=== PATIENT | female | born 1975 | race Hispanic/Latino ===

== ENCOUNTER 2018-03-27 13:22 | Outpatient (CLI) | payer BC ==
--- NOTE | 2018-03-27 15:42 | Mammography Report ---
BILATERAL DIGITAL SCREENING MAMMOGRAM with CAD: 03/27/18 13:22:00 CLINICAL: Baseline screening. FINDINGS: The breasts are heterogeneously dense, which may obscure small masses. No mass, architectural distortion or suspicious calcifications. IMPRESSION: No mammographic evidence of malignancy. BI-RADS CATEGORY: 1 - - Negative RECOMMENDATION: Routine mammographic screening in one year. COMMENT: Patient follow-up letters are generated by our [employer] application.
== END 2018-03-27 13:23 | disposition home or self-care (01) ==
LOC: MAMMO 13:22
PROVIDERS: ATTEND Obstetrics & Gynecology
DX: Z12.31 Encounter for screening mammogram for malignant neoplasm of breast (principal)
CPT/HCPCS: 77067

== ENCOUNTER 2018-11-04 07:08 | Outpatient (CLI) | payer BC ==
--- NOTE | 2018-11-04 10:18 | Fluoroscopy Report ---
UPPER GI SERIES WITH AIR-CONTRAST History: Hiatal hernia, dysphagia. Comparison: No relevant comparison at this facility. Findings: 57 fluoroscopic images were saved during this exam. Deglutition appeared normal. No evidence for aspiration. Multiple fluoroscopic images demonstrated a focal area of high-grade narrowing in the distal esophagus just before the GE junction. Stenosis in this area is estimated at 80% or greater. The area of narrowing measures approximately 2-3 cm in length. This has the appearance of a benign stricture. No evidence for esophageal mass or hiatal hernia. There was significant delay in passage of the oral contrast into the stomach. Occasional esophageal spasms were also witnessed throughout this exam suggesting mild esophagitis. No gastroesophageal reflux was witnessed. The patient was administered a barium tablet which did not transverse the area of esophageal narrowing. The gastric cavity, duodenal bulb and duodenal sweep are unremarkable. No evidence for ulceration or mucosal defect. IMPRESSION: A focal smooth high grade stricture is suspected in the distal esophagus as outlined above.
== END 2018-11-04 07:09 | disposition home or self-care (01) ==
LOC: FLUORO 07:08
PROVIDERS: ATTEND Internal Medicine
DX: K44.9 Diaphragmatic hernia without obstruction or gangrene (principal)
CPT/HCPCS: 74247

== ENCOUNTER 2019-02-27 16:17 | Inpatient (IN) | payer BC ==
[2019-02-27] MEDS ORDERED: PEPCID IV ONE ×2 (16:21→16:23)
[2019-02-27] MEDS ORDERED: SOLU-Medrol IV ONE (16:21)
[2019-02-27] MEDS ORDERED: BENADRYL IV ONE (16:21)
[2019-02-27] MEDS ORDERED: NACL 0.9% 1000 ML 1,000 ML IV ONE ×2 (16:22→18:52)
[2019-02-27] MEDS ORDERED: SOLU-Medrol ONE (16:23)
[2019-02-27] MEDS ORDERED: BENADRYL ONE (16:24)
[2019-02-27] MEDS ORDERED: NACL 0.9% 1000 ML 1,000 ML ONE (16:24)
--- NOTE | 2019-02-27 16:26 | Emergency Department Report ---
HPI - General Time Seen by Provider: 02/27/19 16:21 - HPI HPI: Room 25 The patient is a 43-year-old female presenting with chief complaint of allergic reaction. The patient states she had taken a Bactrim approximately one hour ago. Patient complains of feeling itchy all over with a new rash. Patient also states her teeth "feel funny." Patient states she has taken Bactrim in the past. Patient is currently being treated for UTI. Patient states she's been congested recently Location: [See above] Duration: [See above] Quality: [See above] Severity: [See above] Modifying factors: [see above] Context: [see above] Mode of transportation: [not driving] ED Past Medical Hx - Surgical History Past Surgical History?: No - Family History Family history: no significant - Social History Smoking Status: Current Every Day Smoker (1 pack per day) - Medications Home Medications: Home Medications Medication Instructions Recorded Confirmed Last Taken Type EPINEPHrine [Epipen 2-Handy] 0.3 mg IM ONCE PRN #0.6 ml 02/27/19 Unknown Rx Famotidine [Pepcid] 20 mg PO BID #6 tablet 02/27/19 Unknown Rx Prednisone [predniSONE 10 mg 10 mg PO .TAPER #1 tab.ds.pk 02/27/19 Unknown Rx (6-Day Pack, 21 Tabs)] diphenhydrAMINE [Benadryl CAP] 50 mg PO Q6HR #24 capsule 02/27/19 Unknown Rx levoFLOXacin [Levaquin TAB] 500 mg PO QDAY #7 tablet 02/27/19 Unknown Rx ED Review of Systems ROS: Stated complaint: ALLERGIC REACTION Other details as noted in HPI ENT: other (teeth "feel funny") Skin: rash, pruritus Physical Exam - Physical Exam Physical Exam: GENERAL: The patient is well-developed well-nourished female lying on stretcher not appearing to be in acute distress. [] HEENT: Normocephalic. Atraumatic. NECK: Supple. No stridor CHEST/LUNGS: Faint occasional expiratory wheezing left upper and left lower lobe. There is no respiratory distress noted. HEART/CARDIOVASCULAR: Regular. There is tachycardia. There is no gallop rub or murmur. SKIN: Urticaria present diffusely. There is no diaphoresis. NEURO: The patient is awake, alert, and oriented. The patient is cooperative. The patient has no focal neurologic deficits. The patient has normal speech and gait. MUSCULOSKELETAL: There is no evidence of acute injury. ED Course - Reevaluation(s) Reevaluation #1: 02/27/19 17:08 Patient states she feels improved. SPO2 98% on room air. No respiratory distress. Reevaluation #2: 02/27/19 18:32 Patient states she feels though her symptoms are returning and becoming short of breath. Will repeat racemic epi neb Informed by nurse and the patient's blood pressure decreased to the 80s systolic. Improved with IV fluids. We'll admit the patient to the hospital for further observation ED Medical Decision Making - Lab Data Result diagrams: 02/27/19 19:01 02/27/19 19:01 Laboratory Tests 02/27/19 02/27/19 19:01 19:01 WBC 15.5 H RBC 4.90 Hgb 15.5 H Hct 45.6 H MCV 93 MCH 32 MCHC 34 RDW 13.5 Plt Count 289 Lymph % (Auto) Not Reportable [place] % (Auto) 2.1 Eos % (Auto) 0.1 Baso % (Auto) Not Reportable Lymph # Not Reportable [place] # 0.3 Eos # 0.0 Baso # 0.1 Seg Neutrophils % 85.5 H Seg Neutrophils # 13.6 H Sodium 138 Potassium 3.2 L Chloride 102.8 Carbon Dioxide 21 L Anion Gap 17 BUN 11 Creatinine 0.8 Estimated GFR > 60 BUN/Creatinine Ratio 14 Glucose 170 H Calcium 7.9 L - Radiology Data Radiology results: report reviewed (chest x-ray), image reviewed (chest x-ray) interpreted by me: Chest x-ray-no focal infiltrates no pneumothorax [facility] [address] [place] [address] XRay Report Signed Patient: SINGH HUTCHINSON MR#: [id number] : 1975 Acct:[id number] Age/Sex: 43 / F ADM Date: 02/27/19 Loc: ED Attending Dr: Ordering Physician: CINTHIA WU MD Date of Service: 02/27/19 Procedure(s): XR chest 1V ap Accession Number(s): [id number] cc: CINTHIA WU MD Fluoro Time In Minutes: CHEST 1 VIEW INDICATION: allergic reaction, wheezing today. COMPARISON: None FINDINGS: Support devices: None. Heart: Within normal limits. Lungs/Pleura: No acute air space or interstitial disease. Additional findings: None. IMPRESSION: 1. No acute findings. Signer Name: Raman Cooper MD Signed: 02/27/2019 5:03 PM Workstation Name: [id number] Transcribed By: ASHER Dictated By: Raman Cooper MD Electronically Authenticated By: Raman Cooper MD Signed Date/Time: 02/27/191702 DD/ 02 TD/TT: - Differential Diagnosis allergic reaction Critical care attestation.: If time is entered above; I have spent that time in minutes in the direct care of this critically ill patient, excluding procedure time. ED Disposition Clinical Impression: Acute allergic reaction Disposition: -01 TO HOME OR SELFCARE Is pt being admited?: No Does the pt Need Aspirin: No Condition: Stable Instructions: Antibiotic Medication Allergy (ED) Additional Instructions: Return to the emergency department immediately should you develop worsening symptoms, fever, inability to tolerate food or liquid or any other concerns. Prescriptions: diphenhydrAMINE [Benadryl CAP] 50 mg PO Q6HR #24 capsule EPINEPHrine [Epipen 2-Handy] 0.3 mg IM ONCE PRN #0.6 ml PRN Reason: Shortness Of Breath levoFLOXacin [Levaquin TAB] 500 mg PO QDAY #7 tablet Famotidine [Pepcid] 20 mg PO BID #6 tablet Prednisone [predniSONE 10 mg (6-Day Pack, 21 Tabs)] 10 mg PO .TAPER #1 tab.ds.pk Referrals: PRIMARY CARE, [Referring] - 3-5 Days Time of Disposition: 20:07
--- NOTE | 2019-02-27 17:07 | XRay Report ---
CHEST 1 VIEW INDICATION: allergic reaction, wheezing today. COMPARISON: None FINDINGS: Support devices: None. Heart: Within normal limits. Lungs/Pleura: No acute air space or interstitial disease. Additional findings: None. IMPRESSION: 1. No acute findings. Signer Name: Raman Cooper MD Signed: 02/27/2019 5:03 PM Workstation Name: [id number]
[2019-02-27] MEDS ORDERED: ATARAX PO ONE (18:00)
[2019-02-27] MEDS ORDERED: DECADRON IV ONE (18:24)
[2019-02-27] MEDS ORDERED: DECADRON ONE (18:28)
[2019-02-27 19:30] LABS: Basophils # (Auto) 0.1 K/mm3 (0.0-0.1); Eosinophils % (Auto) 0.1 % (0.0-4.3); Monocytes # (Auto) 0.3 K/mm3 (0.0-0.8); Monocytes % (Auto) 2.1 % (0.0-7.3)
[2019-02-27 19:55] LABS: BUN/Creatinine Ratio 14; Blood Urea Nitrogen 11 mg/dL (7-17); Calcium 7.9 mg/dL (8.4-10.2); Hemolysis Index 7
[2019-02-27] MEDS ORDERED: K-DUR PO ONE ×2 (19:58→22:13)
[2019-02-27 20:00] LABS: Hematocrit 45.6 % (30.3-42.9); Hemoglobin 15.5 gm/dl (10.1-14.3); Mean Corpuscular HGB Conc 34 % (30-34); Mean Corpuscular Volume 93 fl (79-97); Platelet Count 289 K/mm3 (140-440); Red Cell Distribution Width 13.5 % (13.2-15.2)
[2019-02-27 20:55] LABS: Basophils % (Manual) 0 % (0.0-1.8); Eosinophils % (Manual) 0 % (0.0-4.3); Total Cells Counted 100
[2019-02-27 20:56] LABS: Platelet Estimate Consistent w Auto; RBC Morphology Normal
[2019-02-27] MEDS ORDERED: TYLENOL PO PRN (21:41)
[2019-02-27] MEDS ORDERED: ZOFRAN IV PRN (21:41)
[2019-02-27] MEDS ORDERED: SODIUM CHLORIDE FLUSH SYRINGE 10 ML IV PRN (21:41)
[2019-02-27] MEDS ORDERED: BENADRYL IV PRN (21:43)
--- NOTE | 2019-02-27 21:45 | History and Physical Report ---
History of Present Illness Date of examination: 02/27/19 Date of admission: 02/27/19 20:02 History of present illness: 43-year-old with no medical problems was seen in the emergency room for kaila luation of rash. She took Bactrim for urinary tract infection, shortly after she developed a rash on her chest, legs, face. Also complain of itching on her face, going down to her legs and didn't fall her teeth gums and inside the ears. She was given steroids, epinephrine, Benadryl and Pepcid in the emergency room. Her symptoms improve but then she developed shortness of breath, hyotension whi ch she responded to IV fluids Review of systems Constitutional: no weight loss, chills, fever Ears, eyes, nose, mouth and throat: no nasal congestion, no nasal discharge, no sinus pressure, no vision change, no red eye. Neck: No neck pain or rigidity. Cardiovascular: no palpitations, chest pain Respiratory: no cough Gastrointestinal: no hematochezia, abdominal pain Genitourinary : no frequency , no hematuria Musculoskeletal: no joint swelling or muscle ache Integumentary: no rash, no pruritis Neurological: no parathesias, no focal weakness Endocrine: no cold or heat intolerance, no polyuria or polydipsia Hematologic/Lymphatic: no easy bruising, no easy bleeding, no gland swelling Allergic/Immunologic: no urticaria, no angioedema. PAST MEDICAL HISTORY: None PAST SURGICAL HISTORY: SOCIAL HISTORY: Social alcohol, no drugs, +tobacco FAMILY HISTORY: Hypertension Medications and Allergies Allergies Allergy/AdvReac Type Severity Reaction Status Date / Time No Known Allergies Allergy Verified 01/05/19 11:15 Home Medications Medication Instructions Recorded Confirmed Last Taken Type EPINEPHrine [Epipen 2-Handy] 0.3 mg IM ONCE PRN #0.6 ml 02/27/19 Unknown Rx Famotidine [Pepcid] 20 mg PO BID #6 tablet 02/27/19 Unknown Rx Prednisone [predniSONE 10 mg 10 mg PO .TAPER #1 tab.ds.pk 02/27/19 Unknown Rx (6-Day Pack, 21 Tabs)] diphenhydrAMINE [Benadryl CAP] 50 mg PO Q6HR #24 capsule 02/27/19 Unknown Rx levoFLOXacin [Levaquin TAB] 500 mg PO QDAY #7 tablet 02/27/19 Unknown Rx Active Meds: Active Medications Acetaminophen (Tylenol) 650 mg PO Q4H PRN PRN Reason: Pain MILD(1-3)/Fever >100.5/DAVILA Diphenhydramine HCl (Benadryl) 25 mg IV Q6H PRN PRN Reason: Itching Famotidine (Pepcid) 10 mg IV BID CALLY Sodium Chloride (Nacl 0.9% 1000 Ml) 1,000 mls @ 125 mls/hr IV DIRECT CALLY Methylprednisolone Sodium Succinate (Solu-Medrol) 125 mg IV Q6HR CALLY Ondansetron HCl (Zofran) 4 mg IV Q4H PRN PRN Reason: Nausea And Vomiting Sodium Chloride (Sodium Chloride Flush Syringe 10 Ml) 10 ml IV BID CALLY Sodium Chloride (Sodium Chloride Flush Syringe 10 Ml) 10 ml IV PRN PRN PRN Reason: LINE FLUSH Exam - Physical Exam Narrative exam: General Apperance: The patient lying in bed, breathing comfortable HEENT: Normocephalic, atraumatic. Pupils equally round and reactive to light, EOMI, no sclericterus or JVD or thyromegaly or nodule. , no carotid bruit, mucous membranes moist, no exudate or erythema Heart: S1-S2, regular is rhythm Lungs: Clear to auscultation bilaterally, breathing comfortable Abdomen: Positive bowel sounds, soft, nontender, nondistended, no organomegaly Extremities: No edema cyanosis clubbing Skin: no rash, nodule, warm and dry Neuro: cranial nerves 2-12 intact, speech is fluent, motor/sensory intact - Constitutional Vitals: Temp Pulse Resp BP Pulse Ox 98.5 F 91 H 13 124/61 98 02/27/19 20:16 02/27/19 20:16 02/27/19 20:16 02/27/19 20:16 02/27/19 20:16 Results - Labs CBC & Chem 7: 02/27/19 19:01 02/27/19 19:01 Labs: Abnormal lab results 02/27/19 02/27/19 Range/Units 19:01 19:01 WBC 15.5 H (4.5-11.0) K/mm3 Hgb 15.5 H (10.1-14.3) gm/dl Hct 45.6 H (30.3-42.9) % Seg Neutrophils % 85.5 H (40.0-70.0) % Seg Neuts % (Manual) 93.0 H (40.0-70.0) % Lymphocytes % (Manual) 5.0 L (13.4-35.0) % Seg Neutrophils # 13.6 H (1.8-7.7) K/mm3 Seg Neutrophils # Man 14.4 H (1.8-7.7) K/mm3 Lymphocytes # (Manual) 0.8 L (1.2-5.4) K/mm3 Potassium 3.2 L (3.6-5.0) mmol/L Carbon Dioxide 21 L (22-30) mmol/L Glucose 170 H (65-100) mg/dL Calcium 7.9 L (8.4-10.2) mg/dL - Imaging and Cardiology Chest x-ray: report reviewed Assessment and Plan Assessment Allergic reaction to Bactrim Urinary tract infection Plan Admit to medicine Start steroids, Pepcid, Benadryl IV Rocephin, DVT prophylaxis
[2019-02-27] MEDS: SODIUM CHLORIDE FLUSH SYRINGE 10 ML IV SCH (22:14)
[2019-02-27] MEDS: PEPCID IV SCH (22:55)
[2019-02-27] MEDS: NACL 0.9% 1000 ML 1,000 ML IV SCH (22:55)
[2019-02-28] MEDS: SOLU-Medrol IV SCH ×3 (00:07→12:23)
[2019-02-28 05:16] LABS: Hematocrit 44.1 % (30.3-42.9); Hemoglobin 15.2 gm/dl (10.1-14.3); Mean Corpuscular HGB Conc 34 % (30-34); Mean Corpuscular Volume 92 fl (79-97); Platelet Count 266 K/mm3 (140-440); Red Blood Count 4.79 M/mm3 (3.65-5.03); Red Cell Distribution Width 13.2 % (13.2-15.2)
[2019-02-28] MEDS: NACL 0.9% 1000 ML 1,000 ML IV SCH (05:18)
[2019-02-28 05:31] LABS: BUN/Creatinine Ratio 10; Blood Urea Nitrogen 7 mg/dL (7-17); Calcium 8.3 mg/dL (8.4-10.2); Hemolysis Index 3
[2019-02-28 08:25] VITALS: BP 115/50
[2019-02-28 08:41] LABS: Basophils % (Manual) 0 % (0.0-1.8); Eosinophils % (Manual) 0 % (0.0-4.3); Platelet Estimate Consistent w Auto; RBC Morphology Normal; Total Cells Counted 100
[2019-02-28] MEDS: PEPCID IV SCH (09:51)
[2019-02-28] MEDS: SODIUM CHLORIDE FLUSH SYRINGE 10 ML IV SCH (09:59)
[2019-02-28] MEDS ORDERED: ROCEPHIN/NS 1 GM/50 ML 1 GM/50 ML BAG IV SCH (10:00)
--- NOTE | 2019-02-28 11:29 | Discharge Summary ---
Providers - Providers Date of Admission: 02/27/19 20:02 Date of discharge: 02/28/19 Attending physician: JEN ROBB [facility] Reason for admission: allergic reaction to Bactrim Condition: Stable Pertinent studies: chest x-ray; no acute abnormality noted Hospital course: 43-year-old with no medical problems was seen in the emergency room for evaluation of rash. She took Bactrim for urinary tract infection, shortly after she developed a rash on her chest, legs, face. Also complain of itching on her face, going down to her legs and didn't fall her teeth gums and inside the ears. She was given steroids, epinephrine, Benadryl and Pepcid in the emergency room. Her symptoms improve but then she developed shortness of breath, hyotension which she responded to IV fluids. Patient was admitted to the hospital managed with high-dose IV steroids and antihistamines and Pepcid Bactrim was discontinued, patient was given Levaquin for her urinary tract infection as well as EpiPen to use as needed Patient's symptoms significantly improved, today she is comfortable in no new complaints neurologicalno shortness of breath or stridor Vital signs stable, physical examination at discharge is unremarkable Bactrim allergy was documented and strictly told the patient to avoid Bactrim caused related medications as she is allergic and has life-threatening Allergic reaction, patient verbalized understanding Patient is stable at discharge Discharge diagnosis; --Allergic reaction to Bactrim; Received IV steroids and IV antihistamine Pepcid, Bactrim discontinued Symptoms significantly improved --Urinary tract infection; advised Levaquin Levaquin follow-up primary care physician --Obesity BMI 38.9; advised her to touch when medically stable, --Ongoing tobacco use; smoking cessation counseling, advised nicotine patch as needed Patient is hemodynamically and clinically stable at discharge Disposition: DC-01 TO HOME OR SELFCARE Time spent for discharge: 31 min Core Measure Documentation - Palliative Care Palliative Care/ Comfort Measures: Not Applicable - Core Measures Any of the following diagnoses?: none Exam - Constitutional Vitals: Temp Pulse Resp BP Pulse Ox 98.7 F 73 18 115/50 93 02/28/19 08:05 02/28/19 04:11 02/28/19 08:05 02/28/19 08:05 02/28/19 04:11 General appearance: Present: no acute distress, well-nourished, cachectic - EENT Eyes: Present: PERRL, EOM intact - Neck Neck: Present: supple, normal ROM - Respiratory Respiratory effort: normal Respiratory: bilateral: diminished, negative: rales, rhonchi, wheezing - Cardiovascular Rhythm: regular Heart Sounds: Present: S1 & S2 - Extremities Extremities: no ischemia, No edema - Abdominal General gastrointestinal: Present: soft, non-tender, non-distended, normal bowel sounds - Integumentary Integumentary: Present: clear, warm - Musculoskeletal Musculoskeletal: strength equal bilaterally - Psychiatric Psychiatric: appropriate mood/affect, cooperative - Neurologic Neurologic: CNII-XII intact, moves all extremities Plan Activity: no restrictions Diet: regular Additional Instructions: You are Allergic to Bactrim, do not take Bactrim or sulfa group of medications. Advised one day rest on 03/01/2019 Follow up with: PRIMARY CARE, [Referring] - 3-5 Days Forms: Work/School Release Form Prescriptions: diphenhydrAMINE [Benadryl CAP] 50 mg PO Q6HR #24 capsule EPINEPHrine [Epipen 2-Handy] 0.3 mg IM ONCE PRN #0.6 ml PRN Reason: Shortness Of Breath levoFLOXacin [Levaquin TAB] 500 mg PO QDAY #7 tablet Famotidine [Pepcid] 20 mg PO BID #6 tablet Prednisone [predniSONE 10 mg (6-Day Pack, 21 Tabs)] 10 mg PO .TAPER #1 tab.ds.pk
== END 2019-02-28 13:36 | disposition home or self-care (01) | DRG 607 ==
LOC: ED 16:17 → EEVIPCON 20:02 → 4A 20:02
PROVIDERS: ADMIT Internal Medicine; ATTEND Internal Medicine
DX: L29.9 Pruritus, unspecified (principal); N39.0 Urinary tract infection, site not specified; F17.200 Nicotine dependence, unspecified, uncomplicated; T36.8X5A Adverse effect of other systemic antibiotics, initial encounter; Z82.49 Family history of ischemic heart disease and other diseases of the circulatory system; Y92.098 Other place in other non-institutional residence as the place of occurrence of the external cause
CPT/HCPCS: 36415; 71045; 80048; 85007; 85025; 94640; 96361; 96365; 96375; 99406; G0378; J0696; J1100; J1200; J2930; J7030

== ENCOUNTER 2019-07-15 12:35 | Outpatient (CLI) | payer BC ==
--- NOTE | 2019-07-15 15:22 | Mammography Report ---
DIGITAL SCREENING MAMMOGRAM WITH CAD, 07/15/2019 INDICATION: Routine screening mammography. TECHNIQUE: Digital bilateral 2D mammography was obtained in the craniocaudal and mediolateral obliq ue projections. COMPARISON: 03/27/2018. FINDINGS: Breast Density: There are scattered areas of fibroglandular density. There is no evidence of dominant mass, suspicious calcifications or architectural distortion in eithe r breast. CAD was utilized. IMPRESSION: No evidence of malignancy. Recommend screening mammogram in 1 year. BI-RADS Category 1: Negative. No mammographic evidence of malignancy. Recommend routine screening m ammography in one year. A "normal" or negative report should not discourage follow up or biopsy of a clinically significant f inding. A written summary of these findings will be mailed to the patient. The patient will be entered into a mammography reporting system which will generate a reminder letter for the patient's next appointmen t at the appropriate interval. The [employer] recommends yearly mammograms starting at age 40 and continuing as l nguyen as a woman is in good health. Breast MRI is recommended for women with an approximate 20-25% or greater lifetime risk of breast cancer, including women with a strong family history of breast or ova amy cancer or who have been treated for Hodgkin's disease. Signer Name: Vijay Yang MD Signed: 07/15/2019 3:18 PM Workstation Name: [id number]
== END 2019-07-15 12:36 | disposition home or self-care (01) ==
LOC: MAMMO 12:35
PROVIDERS: ATTEND Obstetrics & Gynecology
DX: Z12.31 Encounter for screening mammogram for malignant neoplasm of breast (principal)
CPT/HCPCS: 77067

== ENCOUNTER 2019-07-27 11:29 | Outpatient (CLI) | payer BC ==
[2019-07-27 11:48] LABS: Basophils % (Auto) 0.6 % (0.0-1.8); Eosinophils # (Auto) 0.1 K/mm3 (0.0-0.4); Eosinophils % (Auto) 1.1 % (0.0-4.3); Hematocrit 43.8 % (30.3-42.9); Hemoglobin 14.9 gm/dl (10.1-14.3); Lymphocytes # (Auto) 3.1 K/mm3 (1.2-5.4); Lymphocytes % (Auto) 41.8 % (13.4-35.0); Mean Corpuscular HGB Conc 34 % (30-34); Mean Corpuscular Volume 92 fl (79-97); Monocytes # (Auto) 0.4 K/mm3 (0.0-0.8); Monocytes % (Auto) 5.9 % (0.0-7.3); Platelet Count 265 K/mm3 (140-440); Red Blood Count 4.76 M/mm3 (3.65-5.03); Red Cell Distribution Width 13.1 % (13.2-15.2)
[2019-07-27 12:24] LABS: Alanine Aminotransferase 11 units/L (7-56); BUN/Creatinine Ratio 16; Blood Urea Nitrogen 13 mg/dL (7-17); Calcium 9.1 mg/dL (8.4-10.2); Hemolysis Index 3
== END 2019-07-27 11:30 | disposition home or self-care (01) ==
LOC: LAB 11:29
PROVIDERS: ATTEND Emergency Medicine
DX: I95.9 Hypotension, unspecified (principal)
CPT/HCPCS: 36415; 80053; 83735; 84703; 85025; 85379

== ENCOUNTER 2020-06-29 10:42 | Outpatient (CLI) | payer BC ==
[2020-06-29 11:36] LABS: Basophils % (Auto) 0.5 % (0.0-1.8); Eosinophils # (Auto) 0.1 K/mm3 (0.0-0.4); Hematocrit 43.3 % (30.3-42.9); Lymphocytes # (Auto) 1.9 K/mm3 (1.2-5.4); Lymphocytes % (Auto) 26.6 % (13.4-35.0); Mean Corpuscular HGB Conc 35 % (30-34); Mean Corpuscular Volume 91 fl (79-97); Monocytes # (Auto) 0.5 K/mm3 (0.0-0.8); Monocytes % (Auto) 7.4 % (0.0-7.3); Platelet Count 256 K/mm3 (140-440); Red Blood Count 4.73 M/mm3 (3.65-5.03); Red Cell Distribution Width 13.6 % (13.2-15.2)
[2020-06-29 11:42] LABS: Alanine Aminotransferase 11 units/L (7-56); BUN/Creatinine Ratio 20; Blood Urea Nitrogen 16 mg/dL (7-17); Chol/HDL Ratio 2.85 %; HDL Cholesterol 54 mg/dL (40-59); Hemolysis Index 3; LDL Cholesterol,Direct 100 mg/dL (50-130)
== END 2020-06-29 10:43 | disposition home or self-care (01) ==
LOC: LAB 10:42
PROVIDERS: ATTEND Internal Medicine
DX: Z00.00 Encounter for general adult medical examination without abnormal findings (principal)
CPT/HCPCS: 36415; 80053; 80061; 84443; 85025

== ENCOUNTER 2020-07-27 11:01 | Outpatient (CLI) | payer BC ==
--- NOTE | 2020-07-27 14:51 | Mammography Report ---
DIGITAL SCREENING MAMMOGRAM WITH CAD, 07/27/2020 CLINICAL INFORMATION / INDICATION: Routine screening mammography. TECHNIQUE: Digital bilateral 2D mammography was obtained in the craniocaudal and mediolateral obliqu e projections. This examination was interpreted with the benefit of Computer-Aided Detection analysis . COMPARISON: 07/15/2019 FINDINGS: Breast Density: There are scattered areas of fibroglandular density. No dominant mass, suspicious calcifications, or architectural distortion in either breast. IMPRESSION: No mammographic evidence of malignancy. Follow up recommendation: Routine yearly BI-RADS Category 1: Negative. A "normal" or negative report should not discourage follow up or biopsy of a clinically significant f inding. A written summary of these findings will be mailed to the patient. The patient will be entered into a mammography reporting system which will generate a reminder letter for the patient's next appointmen t at the appropriate interval. The [employer] recommends yearly mammograms starting at age 40 and continuing as l nguyen as a woman is in good health. Breast MRI is recommended for women with an approximate 20-25% or greater lifetime risk of breast cancer, including women with a strong family history of breast or ova amy cancer or who have been treated for Hodgkin's disease. Signer Name: Davis Leon MD Signed: 07/27/2020 2:47 PM Workstation Name: [id number]
== END 2020-07-27 11:02 | disposition home or self-care (01) ==
LOC: MAMMO 11:01
PROVIDERS: ATTEND Internal Medicine
DX: Z12.31 Encounter for screening mammogram for malignant neoplasm of breast (principal); N64.89 Other specified disorders of breast
CPT/HCPCS: 77067